=== PATIENT | male | born 1945 | race Caucasian/White ===

== ENCOUNTER 2024-01-20 14:17 | Emergency (ER) | payer MEDICARE, BC, SELFPAY ==
[2024-01-20 14:20] VITALS: BP 130/72
--- NOTE | 2024-01-20 16:00 | ED.GENMED ---
History of Present Illness
General
Chief Complaint: Abdominal Symptoms
Time Seen by Provider: 01/20/24 15:25
History of Present Illness
History of Present Illness:
78-year-old male with history of inflammatory bowel disease on Remicade presents to the emergency department for evaluation of persistent diarrhea for the past 7 days. Reports diarrhea is watery, nonbloody, not foul-smelling. He saw his PCP
earlier in the week and had outpatient stool test, stool culture was negative, Giardia negative, C. difficile negative, and fecal calprotectin was 51. He has not had a antibiotics recently and has not been hospitalized recently. Denies any
abdominal pain or fevers at this time.
Review of Systems
Review of Systems
Allergies reviewed?: Yes
All Other Systems: ROS reviewed and negative except as documented in HPI and ROS
Phy Exam
Physical Exam
Physical Exam:
GEN: Well appearing, NAD, WDWN
HEENT: Oral mucosa moist, no scleral icterus
Cardiac: Regular rate
Lung: No respiratory distress, no tachypnea
Abdomen: Soft, generally nontender
MSK: No gross deformity or injuries
Skin: Good color, no pallor or jaundice, no rashes
Neuro: AO x3, moves all extremities freely
Psych: Calm, cooperative
Course
Orders/Labs/Results
Orders:
Orders
01/20/24 16:24
Basic Metabolic Panel Urgent
Complete Blood Count/With Diff Urgent
Lactated Ringers [Lr] 1,000 ml IV BOLUS
01/20/24 17:25
Potassium Urgent
01/20/24 18:10
MethylPREDNISolone PF [Solu-Medrol Pf] 60 mg IV NOW STA
Abnormal Lab Results
01/20/24
16:24
RBC 3.83 L 10^6/uL
(4.70-6.10)
Hct 37.1 L %
(39.0-52.0)
MCV 96.9 H fL
(80.0-94.0)
MCH 33.9 H pg
(27.0-31.0)
MPV 10.9 H fL
(7.4-10.4)
Abs Immat Gran (auto) 0.2 H 10^3/uL
(0-0.05)
Absolute Monos (auto) 0.9 H 10^3/uL
(0.1-0.6)
Immature Gran % 2.1 H %
(0-0.5)
Lymphocytes % 19.8 L %
(20.5-51.1)
Monocytes % 12.1 H %
(1.7-9.3)
Eosinophils % 7.6 H %
(0-6)
BUN 22 H mg/dl
(9-20)
01/20/24 16:24
01/20/24 17:25
Vital Signs
Initial and Last Documented VS:
Initial Vital Signs
Temp Pulse Resp BP Pulse Ox
97.9 F 96 16 130/72 96
01/20/24 14:20 01/20/24 14:20 01/20/24 14:20 01/20/24 14:20 01/20/24 14:20
Last Documented Vital Signs
Temp Pulse Resp BP Pulse Ox
98.5 F 82 16 125/56 99
01/20/24 16:39 01/20/24 18:20 01/20/24 18:20 01/20/24 18:20 01/20/24 18:20
MDM/Problems Addressed
MDM/Problems Addressed:
Patient's labs are reassuring. Discussed case with GI on-call course of steroids empirically at this time. Patient is suitable for outpatient management
*Critical Care Note
Total Time (30-74mins, 75-104mins- exclusive of procedures): Not Applicable
ED Attending Note
-
Portions of this chart may have been created with voice recognition software.� Occasional wrong word or��sound alike� substitutions may have occurred due to the inherent limitations of voice recognition software.
Discharge Plan
Departure
Patient Disposition: Home (Routine Discharge)
Date of Disposition: 01/20/24
Time of Disposition: 18:10
Patient with high blood pressure during this ER visit?: No
Discharge Problem:
Exacerbation of ulcerative colitis
Instructions: Diarrhea, Adult ED
Prescriptions:
New
prednisone 20 mg tablet
40 mg PO DAILY Qty: 9 0RF
Rx Instructions:
40mg PO qd x 3d then 20mg PO qd x 3d
No Action
pantoprazole 20 mg Tablet,Delayed Release (Dr/Ec)
20 mg PO DAILY
levothyroxine 100 mcg Tablet
100 mcg PO DAILY
Referrals:
Alana Leavitt DO [Family Provider] -
Interventions
Interventions:
*Risk Screen - Suicide Last Done: 01/20/24 14:20
*General Assessment Last Done: 01/20/24 14:20
*Neglect/Abuse Screening Last Done: 01/20/24 14:20
ED- Fall Risk Assessment Last Done: 01/20/24 16:39
*ED COVID-19 Vaccine History Last Done: 01/20/24 16:39
*Nursing Disposition Last Done: 01/20/24 18:27
XX-Nkprli-Gfcztghzlo Assessment Last Done: 01/20/24 16:39
Discharge Date and Time
Discharge Date/Time: 01/20/24 18:28
Print Language: CZECH
[2024-01-20 16:39] VITALS: BP 131/72; BMI 22.3
[2024-01-20] MEDS: LR 1000 IV (16:42)
[2024-01-20 16:45] LABS: % Basophils 1.7 % (0-2); % Eosinophils 7.6 % (0-6); % Immature Granulocytes 2.1 % (0-0.5); % Lymphocytes 19.8 % (20.5-51.1); % Monocytes 12.1 % (1.7-9.3); % Neutrophils 56.7 % (42.2-75.2); Absolute Basophils 0.1 10^3/uL (0-0.2); Absolute Eosinophils 0.5 10^3/uL (0-0.7); Absolute Immature Granulocytes 0.2 10^3/uL (0-0.05); Absolute Lymphocytes 1.4 10^3/uL (1.2-3.4); Absolute Monocytes 0.9 10^3/uL (0.1-0.6); Hematocrit 37.1 % (39.0-52.0); Mean Corpuscular Hgb 33.9 pg (27.0-31.0); Mean Corpuscular Volume 96.9 fL (80.0-94.0); Mean Platelet Volume 10.9 fL (7.4-10.4); Nucleated Red Blood Cells % 0 % (-); Platelet Count 261 10^3/uL (130-400); Red Blood Cell Count 3.83 10^6/uL (4.70-6.10); Red Cell Dist. Width 13.2 % (11.5-14.5); White Blood Cell Count 7.1 10^3/uL (4.8-10.8)
[2024-01-20 16:59] LABS: Blood Urea Nitrogen 22 mg/dl (9-20); Calcium 9.5 mg/dl (8.4-10.2); Carbon Dioxide 22 mmol/L (22-30); Chloride 105 mmol/L (98-107); Estimated Creatinine Clearance 69 ml/min; Glucose 85 mg/dl (70-99); Sodium 141 mmol/L (135-145); eGFR > 60.00
[2024-01-20 17:01] VITALS: BP 119/62
[2024-01-20 17:49] LABS: Potassium 4.6 mmol/L (3.5-5.1)
[2024-01-20 18:00] VITALS: BP 125/56
[2024-01-20 18:20] VITALS: BP 125/56
[2024-01-20] MEDS: SOLU-MEDROL PF 60 MG IV (18:24)
== END 2024-01-20 18:28 | disposition home or self-care (01) ==
LOC: EMR 14:17
PROVIDERS: Physician Assistant; EMERGENCY PHYSICIAN Emergency Medicine; FAMILY PHYSICIAN Internal Medicine
DX: K51.90 Ulcerative colitis, unspecified, without complications (principal)
CPT/HCPCS: 99283; 96374; 96361; 80048; 84132; 85025